=== PATIENT | female | born 1965 | race Caucasian/White ===

== ENCOUNTER → 2017-05-08 | Outpatient (CLI) | payer OTHER | LOC: RAD 01:43 → BC 07:57 → RAD 15:23 | DX: Z12.31 Encounter for screening mammogram for malignant neoplasm of breast (principal) ==

== ENCOUNTER → 2018-05-09 | Outpatient (CLI) | payer OTHER | LOC: RAD 01:35 | DX: Z12.31 Encounter for screening mammogram for malignant neoplasm of breast (principal) ==

== ENCOUNTER → 2018-05-14 | Outpatient (CLI) | payer OTHER | LOC: RAD 03:09 | DX: R92.8 Other abnormal and inconclusive findings on diagnostic imaging of breast (principal) ==

== ENCOUNTER → 2018-05-16 | Outpatient (CLI) | payer OTHER ==
--- NOTE | ~2018-05-16 | PATH ---
[facility] [address] [place] [address] PATHOLOGY RPT PROCEDURE Name: YOLETTE CABRAL Room #: REG CHARANJIT Feliz.#: [id number] Admission: 05/16/18 Date of : 63 Discharge: Report #: [id number] Path Case #: [id number] [facility] Accession Number: [id number] . 01 Material submitted: . LEFT BREAST . 01 Clinical history: . Left breast mass . 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 [facility]/05/20/2018 . 02 Comment: Specimen type: Needle core biopsy Tumor site: Left breast 2:00/3:00 Tumor quantitation: 1.2 cm in greatest dimensions in a single core in contiguous length Histologic type: Invasive ductal carcinoma mixed with lobular features Histologic grade: Gilberts grade 1 Tubules, nuclei and mitoses: 3, 1, 1 LVSI: Not identified Microcalcifications: Not identified Markers: ER, NM, Ki-67 and HER-2/ABIMAEL Block: Block A2 . Co-review: Dr. Derrek Jesus (slide A1-1). . Findings are telephoned to Ms. Chan at 11:10 on 05/19/2018 (IUV:pit 05/20/2018) . . 02 Electronically signed: . Perla Rick MD, Pathologist NPI- [id number] . 01 Gross description: . The specimen is received in formalin, labeled "Yolette Cabral, left breast 2:00 3 cm from nipple". Received are multiple needle cores of yellow-cárdenas fibrofatty tissue measuring 2.2 x 2.0 x 0.6 cm in aggregate dimensions. The specimen is submitted entirely in cassettes A1 through A3. The cold ischemic time is five minutes. The total formalin fixation time is 52 hours and 15 [place] [address] PATHOLOGY RPT PROCEDURE Name: YOLETTE CABRAL [id number]mission: 05/16/18 Date of : 63 Discharge: Report #: [id number] Path Case #: [id number] ([facility] [place]; 05/18/2018) SYC/QAC . 02 Pathologist provided ICD-10: C50.912 . 02 CPT . 528922 Performed at: [address], [place], [place] [id number] MD Suhail Courtney MD Phone: [phone] Performed at: [address] [id number] MD Perla Rick MD Phone: [phone]
== END | disposition home or self-care (01) ==
LOC: ULTRA 08:40
DX: C50.812 Malignant neoplasm of overlapping sites of left female breast (principal)

== ENCOUNTER → 2018-06-10 | Outpatient (CLI) | payer OTHER | LOC: MRI 09:06 | DX: C50.911 Malignant neoplasm of unspecified site of right female breast (principal); C50.912 Malignant neoplasm of unspecified site of left female breast ==